=== PATIENT | male | born 1965 | race Asian ===

== ENCOUNTER 2025-02-23 10:54 | Emergency (ER) | payer MEDICAID ==
[~2025-02-23] VITALS: Ht 162.6 cm; Wt 59.0 kg
[~2025-02-23 10:54] MED LIST: AMLO10TA80 PO; CALC667C PO; CARV12.545 PO; HYDR-3735 PO; SODI10PO PO; TC1C15 TP
[2025-02-23 10:56] VITALS: O2SAT 98
[2025-02-23 12:03] LABS: CHLORIDE 96 mEq/L (98-107); POTASSIUM 3.7 mEq/L (3.5-5.1); SODIUM 138 mEq/L (136-145)
[2025-02-23 12:04] LABS: CALCIUM 9.6 mg/dL (8.7-10.4); CARBON DIOXIDE 29 mEq/L (21-32)
[2025-02-23 12:07] LABS: BASOPHILS % 0.9 % (0.0-2.0); EOSINOPHILS % 3.8 % (0.0-5.0); HEMATOCRIT. 38.1 % (42.0-52.0); HEMOGLOBIN. 12.2 g/dL (14.0-18.0); LYMPHOCYTES % 11.4 % (20.0-50.0); MEAN CORPUSCULAR HEMOGLOBIN 30.3 pg (28.0-32.0); MEAN CORPUSCULAR HGB CONC 32.1 g/dL (31.0-37.0); MEAN CORPUSCULAR VOLUME 94.1 fL (80.0-94.0); MEAN PLATELET VOLUME 8.5 fl (7.4-10.4); MONOCYTES % 6.4 % (2.0-8.0); NEUTROPHILS % 77.5 % (40.0-76.0); PLATELET 102 x1000/uL (130-400); RED BLOOD CELL COUNT 4.05 mill/uL (4.7-6.1); RED CELL DISTRIBUTION WIDTH 14.7 % (11.6-14.6); WHITE BLOOD COUNT 5.3 x1000/uL (4.5-11.0)
[2025-02-23 12:09] LABS: CREATININE 2.8 mg/dL (0.6-1.3); GLUCOSE 140 mg/dL (70-105); UREA NITROGEN BLOOD 11 mg/dL (9-23)
[2025-02-23 12:10] LABS: TROPONIN I HIGH SENSITIVITY 31 ng/L (3.0-53)
[2025-02-23] MEDS: LIDOCAINE HCL/PF 1% 10 MG/ML 5ML VIAL INFIL ONE (12:14)
[2025-02-23] MEDS: BACITRACIN ZINC OINT UDPKT TOP ONE (12:14)
[2025-02-23 12:31] LABS: INR 0.9; PARTIAL THROMBOPLASTIN TIME 27.3 sec (23.4-31.0); PROTHROMBIN TIME 10.2 sec (9.6-11.0)
[2025-02-23 12:55] VITALS: BP 174/104; PULSE 75; RESP 18; TEMP 36.9; O2SAT 97
== END 2025-02-23 16:51 | disposition home or self-care (01) ==
LOC: ER 10:59
DX: R42 Dizziness and giddiness (principal); E11.9 Type 2 diabetes mellitus without complications; D64.9 Anemia, unspecified; Z79.899 Other long term (current) drug therapy
CPT/HCPCS: 80048; 83880; 85025; 85610; 85730; 86850; 86900; 86901; 84484; 36415; 71045; 70450; 93005; 99285; J2003; Z7610

== ENCOUNTER 2025-09-25 15:15 | Inpatient (IN) | payer MEDICAID ==
[2025-09-25] VITALS (11 sets, daily range): BP systolic 101–219; BP diastolic 44–78; PULSE 72–129; RESP 18–20; TEMP 36.3918–36.55848; O2SAT 97–98
[~2025-09-25] VITALS: Ht 165.1 cm; Wt 70.3 kg
[~2025-09-25 15:15] MED LIST changes: -AMLO10TA80 PO; +ASPI-1497 MT; -CARV12.545 PO; +DILT180C66 PO; +DOXA-15 PO; +HYDR100T31 PO; +LIP40 PO; -TC1C15 TP
[2025-09-25 16:14] LABS: BASOPHILS % 2.0 % (0.0-2.0); EOSINOPHILS % 1.7 % (0.0-5.0); HEMATOCRIT. 35.3 % (42.0-52.0); HEMOGLOBIN. 11.5 g/dL (14.0-18.0); LYMPHOCYTES % 7.6 % (20.0-50.0); MEAN PLATELET VOLUME 8.2 fl (7.4-10.4); MONOCYTES % 6.2 % (2.0-8.0); NEUTROPHILS % 82.5 % (40.0-76.0); PLATELET 58 x1000/uL (130-400); RED BLOOD CELL COUNT 3.63 mill/uL (4.7-6.1); RED CELL DISTRIBUTION WIDTH 17.8 % (11.6-14.6)
[2025-09-25 16:34] LABS: ASPARTATE AMINOTRANSFERASE 24 IU/L (<34); TROPONIN I HIGH SENSITIVITY 32 ng/L (3.0-53); UREA NITROGEN BLOOD 33 mg/dL (9-23)
[2025-09-25 16:35] LABS: ETHANOL BLOOD < 10 mg/dL (<10)
[2025-09-25 16:36] LABS: BILIRUBIN DIRECT 0.2 mg/dL (<=3.0); BILIRUBIN TOTAL 0.6 mg/dL (0.1-1.0); PROTEIN TOTAL 6.0 g/dL (6.0-8.3)
[2025-09-25 16:42] LABS: CREATININE 8.3 mg/dL (0.6-1.3)
[2025-09-25] MEDS: DEXTROSE 50% WATER 50ML SYRINGE IV SCH (16:50)
[2025-09-25] MEDS: FUROSEMIDE 40MG/4ML VIAL IV SCH (16:50)
[2025-09-25] MEDS: INSULIN REGULAR (HUMULIN R) 1000UNITS/10ML VIAL IV SCH (16:51)
[2025-09-25] MEDS: CALCIUM GLUCONATE 100MG/ML 10ML VIAL IV SCH (16:51)
[2025-09-25] MEDS: ALBUTEROL (0.5%) 2.5MG/0.5ML NEB HHN SCH (17:03)
[2025-09-25] MEDS ORDERED: MAGNESIUM/ALUMINUM HYDROXIDE/SIMETHICONE 30ML UDC PO PRN (17:30)
[2025-09-25] MEDS ORDERED: IPRATROPIUM/ALBUTEROL 0.5-3(2.5)MG/3ML NEB HHN PRN (17:30)
[2025-09-25] MEDS ORDERED: DOCUSATE SODIUM 100MG CAPSULE PO PRN (17:30)
[2025-09-25] MEDS ORDERED: ONDANSETRON HCL 4MG/2ML INJ IV PRN (17:30)
[2025-09-25] MEDS ORDERED: GUAIFENESIN 200MG/10ML SUGAR FREE UDC PO PRN (17:30)
[2025-09-25] MEDS ORDERED: ACETAMINOPHEN 325MG TABLET PO PRN (17:30)
[2025-09-25 18:45] LABS: LACTATE DEHYDROGENASE 256 IU/L (120-246)
[2025-09-25] MEDS ORDERED: DEXTROSE 50% WATER 50ML SYRINGE IV PRN (19:15)
[2025-09-25] MEDS: INSULIN LISPRO 100 UNITS/ML SUBCUT SCH (23:00)
[2025-09-25] MEDS: HYDROXYZINE 25MG TABLET PO SCH (23:00)
[2025-09-25] MEDS: ATORVASTATIN CALCIUM 40MG TABLET PO SCH (23:00)
[2025-09-25] MEDS: IPRATROPIUM/ALBUTEROL 0.5-3(2.5)MG/3ML NEB HHN SCH (23:00)
[2025-09-25] MEDS: PANTOPRAZOLE SODIUM 40 MG/VIAL IV SCH (23:00)
[2025-09-25] MEDS: CALCIUM ACETATE 667MG CAPSULE PO SCH (23:00)
[2025-09-25] MEDS: HYDRALAZINE HCL 100MG TABLET PO SCH (23:00)
[2025-09-25] MEDS: BLOOD SUGAR DIAGNOSTIC STRIP TEST SCH (23:00)
[2025-09-25] MEDS: SODIUM ZIRCONIUM CYCLOSILICATE 10GM/PACKET PO SCH (23:00)
[2025-09-25] MEDS: DOXAZOSIN MESYLATE 4MG TABLET PO SCH (23:00)
[2025-09-25] MEDS: DILTIAZEM HCL 180MG CAPSULE ER 24HR PO SCH (23:00)
[2025-09-26] VITALS (9 sets, daily range): BP systolic 76–179; BP diastolic 33–77; PULSE 71–111; RESP 16–20; TEMP 36.4–36.8; O2SAT 87–98
[2025-09-26 00:24] LABS: TROPONIN I HIGH SENSITIVITY 39 ng/L (3.0-53)
[2025-09-26 11:31] LABS: BASOPHILS % 0.6 % (0.0-2.0); EOSINOPHILS % 2.0 % (0.0-5.0); HEMATOCRIT. 33.0 % (42.0-52.0); HEMOGLOBIN. 10.9 g/dL (14.0-18.0); LYMPHOCYTES % 7.1 % (20.0-50.0); MEAN PLATELET VOLUME 8.7 fl (7.4-10.4); MONOCYTES % 7.9 % (2.0-8.0); NEUTROPHILS % 82.4 % (40.0-76.0); PLATELET 61 x1000/uL (130-400); RED BLOOD CELL COUNT 3.42 mill/uL (4.7-6.1); RED CELL DISTRIBUTION WIDTH 17.4 % (11.6-14.6)
[2025-09-26 11:47] LABS: TRIGLYCERIDE 43.0 mg/dL (0-150); UREA NITROGEN BLOOD 26.0 mg/dL (9-23)
[2025-09-26 11:48] LABS: LDL CHOLESTEROL 58.0 mg/dL (5-100)
[2025-09-26 11:50] LABS: CREATININE 6.6 mg/dL (0.6-1.3)
[2025-09-26 11:51] LABS: T4 FREE 1.08 ng/dL (0.89-1.76)
[2025-09-26 11:59] LABS: TROPONIN I HIGH SENSITIVITY 84 ng/L (3.0-53)
[2025-09-26] MEDS: CLONIDINE 0.1MG TABLET PO PRN (16:35)
[2025-09-26 18:04] LABS: HEPATITIS A AB IGM NEGATIVE (Negative)
[2025-09-26 18:05] LABS: HEPATITIS B CORE AB IGM NEGATIVE (Negative); HEPATITIS C AB NON REACTIVE (Neg) (Negative)
[2025-09-27] VITALS (9 sets, daily range): BP systolic 81–182; BP diastolic 34–59; PULSE 64–78; RESP 16–20; TEMP 36.3–36.6696; O2SAT 96–99
[2025-09-27] MEDS: SODIUM CHLORIDE 0.9% 250 ML IV ONE (01:44)
[2025-09-27] MEDS: ACETAMINOPHEN 325MG TABLET PO PRN (14:07)
[2025-09-27] MEDS: DILTIAZEM HCL 120MG CAPSULE ER 24HR PO NR (14:08)
[2025-09-27] MEDS ORDERED: ASPI-1497 MT (14:41)
[2025-09-27] MEDS ORDERED: DOXA-15 PO (14:41)
[2025-09-27] MEDS ORDERED: DILT240T12 MT (14:41)
[2025-09-27] MEDS ORDERED: HYDR100T31 PO (14:41)
[2025-09-27] MEDS ORDERED: SEMA3TAB4 PO (14:41)
[2025-09-27] MEDS ORDERED: SODI10PO PO (14:41)
[2025-09-27] MEDS ORDERED: CALC667C PO (14:41)
[2025-09-27] MEDS ORDERED: LIP40 PO (14:41)
[2025-09-27] MEDS: HYDRALAZINE HCL 50MG TABLET PO SCH (17:00)
[2025-09-28] VITALS (14 sets, daily range): BP systolic 118–192; BP diastolic 45–72; PULSE 57–71; RESP 17–20; TEMP 36.1–36.6; O2SAT 89–97
[2025-09-28] MEDS: DILTIAZEM HCL 120MG CAPSULE ER 24HR PO SCH (09:00)
[2025-09-29] VITALS (11 sets, daily range): BP systolic 138–213; BP diastolic 69–83; PULSE 69–88; RESP 16–19; TEMP 36.1–36.4; O2SAT 90–98
[2025-09-29] MEDS: HYDRALAZINE HCL 50MG TABLET PO SCH (01:20)
[2025-09-29] MEDS: HYDRALAZINE HCL 100MG TABLET PO SCH (13:00)
[2025-09-30] VITALS (16 sets, daily range): BP systolic 123–192; BP diastolic 52–80; PULSE 61–82; RESP 16–22; TEMP 36.1–36.6696; O2SAT 90–100
[2025-09-30] MEDS ORDERED: HYDRALAZINE 20MG/ML VIAL IV PRN (13:30)
[2025-09-30] MEDS ORDERED: HYDROXYZINE 25MG TABLET PO PRN (13:30)
[2025-09-30] MEDS: CLONIDINE 0.1MG TABLET PO PRN (15:54)
[2025-10-01] VITALS (20 sets, daily range): BP systolic 68–198; BP diastolic 29–80; PULSE 58–68; RESP 16–22; TEMP 36.4–36.7; O2SAT 97–100
[2025-10-01 19:08] LABS: PLATELET 81 x1000/uL (130-400); RED BLOOD CELL COUNT 3.12 mill/uL (4.7-6.1); RED CELL DISTRIBUTION WIDTH 16.1 % (11.6-14.6)
[2025-10-01 19:22] LABS: CREATININE 4.9 mg/dL (0.6-1.3); UREA NITROGEN BLOOD 19 mg/dL (9-23)
[2025-10-01 19:24] LABS: PHOSPHORUS 2.9 mg/dL (2.5-4.9)
[2025-10-02] VITALS (7 sets, daily range): BP systolic 95–164; BP diastolic 49–69; PULSE 63–78; RESP 16–20; TEMP 36.2–36.6696; O2SAT 96–97
[2025-10-02] MEDS: EPOETIN ALFA-EPBX 4,000 UNITS/ML VIAL SUBCUT SCH (13:00)
== END 2025-10-02 18:00 | disposition home or self-care (01) | DRG 194 ==
LOC: ER 15:15 → 5WST 16:49 → EDBEDREQ 16:52 → EDBEDREQTM 16:52 → ENRESERV 19:12
PROVIDERS: ADMIT Internal Medicine; ATTEND Internal Medicine
PROC: 5A1D70Z Performance of Urinary Filtration, Intermittent, Less than 6 Hours Per Day (ICD-10-PCS; principal; 2025-09-25)
PROC: 5A1D70Z Performance of Urinary Filtration, Intermittent, Less than 6 Hours Per Day (ICD-10-PCS; 2025-09-26)
PROC: 5A1D70Z Performance of Urinary Filtration, Intermittent, Less than 6 Hours Per Day (ICD-10-PCS; 2025-09-28)
PROC: 5A1D70Z Performance of Urinary Filtration, Intermittent, Less than 6 Hours Per Day (ICD-10-PCS; 2025-09-30)
PROC: 5A1D70Z Performance of Urinary Filtration, Intermittent, Less than 6 Hours Per Day (ICD-10-PCS; 2025-10-01)
DX: I13.2 Hypertensive heart and chronic kidney disease with heart failure and with stage 5 chronic kidney disease, or end stage renal disease (principal); J96.01 Acute respiratory failure with hypoxia; N18.6 End stage renal disease; D69.6 Thrombocytopenia, unspecified; Z99.2 Dependence on renal dialysis; I48.92 Unspecified atrial flutter; I50.9 Heart failure, unspecified; N25.81 Secondary hyperparathyroidism of renal origin; E11.51 Type 2 diabetes mellitus with diabetic peripheral angiopathy without gangrene; F32.A Depression, unspecified; E11.22 Type 2 diabetes mellitus with diabetic chronic kidney disease; E87.5 Hyperkalemia; I48.91 Unspecified atrial fibrillation; E78.00 Pure hypercholesterolemia, unspecified; I25.10 Atherosclerotic heart disease of native coronary artery without angina pectoris; Z91.148 Patient's other noncompliance with medication regimen for other reason; Z89.512 Acquired absence of left leg below knee; Z79.899 Other long term (current) drug therapy
CPT/HCPCS: 36415; 71045; 80048; 80061; 80076; 80320; 82550; 82728; 82962; 83036; 83540; 83550; 83615; 83735; 83880; 84100; 84439; 84443; 84484; 85025; 85027; 86705; 86709; 86850; 86900; 87340; 90935; 93005; 93970; 94070; 94618; 94640; 94760; 99291; A4606; J0612; J0885; J1815; J1938; J2470; G0480